=== PATIENT | male | born 1970 | race Caucasian/White ===

== ENCOUNTER 2022-02-27 14:12 | Emergency (ER) | payer OTHER ==
[2022-02-27 14:40] VITALS: BP 144/86
--- NOTE | 2022-02-27 16:42 | ED Physician Documentation ---
PD HPI URI - Stated complaint Stated Complaint: RT EAR PRESSURE - Chief complaint Chief Complaint: Heent - History obtained from History obtained from: Patient - History of Present Illness Timing - onset: How many days ago (6) Timing duration: Days (6) Timing details: Gradual onset Pain level max: 2 Pain level now: 1 Associated symptoms: Ear pain (Right ear), Nasal congestion, Rhinorrhea, Dry cough. No: Sinus pain, Sore throat, Swollen nodes Recently seen: Not recently seen - Additional information Additional information: Patient is a 51-year-old male who states for the past 6 days he has had rhinorrhea, congestion, mild dry cough and right ear pain. Concerned about potential ear infection. No fevers. No chills. Also concerned about potential sinus infection. Review of Systems Constitutional: denies: Fever, Chills Nose: reports: Rhinorrhea / runny nose, Congestion Throat: denies: Sore throat GI: denies: Vomiting PD PAST MEDICAL HISTORY - Past Medical History Past Medical History: No - Past Surgical History Past Surgical History: No - Present Medications Home Medications: Ambulatory Orders Medication Instructions Recorded Confirmed Amantadine [Symmetrel] 100 mg PO BID 02/27/22 02/27/22 Amox/Clav 875/125 [Augmentin] 1 tab PO Q12H #14 tablet 02/27/22 Buspirone HCl 20 mg PO TID 02/27/22 02/27/22 Cetirizine HCl/Pseudoephedrine 1 each PO BID PRN #30 tab 02/27/22 [Zyrtec-D Tablet] Erenumab-Aooe [Aimovig 70 mg INJ ONCE 02/27/22 02/27/22 Autoinjector] Eszopiclone [Lunesta] 1 - 3 tab PO DAILY PM PRN 02/27/22 02/27/22 Loratadine [Claritin] 10 mg PO DAILY 02/27/22 02/27/22 Meloxicam, Submicronized 15 mg PO DAILY 02/27/22 02/27/22 [Meloxicam] Rivaroxaban [Xarelto] 20 mg PO DAILY 02/27/22 02/27/22 - Allergies Allergies/Adverse Reactions: Allergies Allergy/AdvReac Type Severity Reaction Status Date / Time No Known Drug Allergies Allergy Verified 02/27/22 14:35 PD ED PE NORMAL - Vitals Vital signs reviewed: Yes - General General: Alert and oriented X 3, No acute distress - HEENT HEENT: PERRL, Moist mucous membranes, Pharynx benign, Other (Left ear is normal. Right TM has serous fluid, mild bulging. No erythema. No purulence. No sinus tenderness.) - Neck Neck: Supple, no meningeal sign - Cardiac Cardiac: RRR, Strong equal pulses - Respiratory Respiratory: No respiratory distress, Clear bilaterally - Abdomen Abdomen: Soft, Non tender, Non distended - Derm Derm: Warm and dry, No rash - Neuro Neuro: Alert and oriented X 3 Results - Vitals Vitals: Vital Signs - 24 hr 02/27/22 14:35 Temperature 36.8 C Heart Rate 60 Respiratory 16 Rate Blood Pressure 144/86 H O2 Saturation 98 Oxygen O2 Source Room air PD Medical Decision Making - ED course Complexity details: reviewed results, re-evaluated patient, considered differential, d/w patient ED course: 51-year-old male with a right acute serous otitis. Also appears to have a viral upper respiratory infection. We will place on decongestants for home. The patient did try to contact his primary care provider and they cannot see him for least 1 to 2 weeks. And therefore due to the difficulty for follow-up we will prescribe an antibiotic that he can start if he is not improving in 2 to 3 days as expected, starts to develop fevers or worsening pain. Patient is well- appearing, nontoxic. Afebrile. Patient counseled regarding side effects of antibiotics, antibiotic resistance, C. difficile risk, etc. Patient accepts these. Patient counseled regarding signs and symptoms for which I believe and urgent re-evaluation would be necessary. Patient with good understanding of and agreement to plan and is comfortable going home at this time This document was made in part using voice recognition software. While efforts are made to proofread this document, sound alike and grammatical errors may occur. Departure - Departure Disposition: Home, Self Care Clinical Impression: Serous otitis media Qualifiers: Chronicity: acute Laterality: right Recurrence: non-recurrent Qualified Code(s): H65.01 - Acute serous otitis media, right ear Condition: Good Instructions: ED Otitis Media Acute Adult Follow-Up: Weston Martinez MD [Primary Care Provider] - As Needed Prescriptions: Amox/Clav 875/125 [Augmentin] 1 tab PO Q12H #14 tablet Cetirizine HCl/Pseudoephedrine [Zyrtec-D Tablet] 1 each PO BID PRN #30 tab PRN Reason: nasal congestion Comments: Your prescriptions were sent to [facility] in [place]. I would try the decongestants first, if you are having symptoms in 2 to 3 days, I would start the antibiotic. Please follow-up with your doctor as needed for further care. Please return if you worsen. Discharge Date/Time: 02/27/22 16:47
== END 2022-02-27 16:47 | disposition home or self-care (01) ==
LOC: ED 14:12
DX: H65.01 Acute serous otitis media, right ear (principal)
CPT/HCPCS: 99282; 99283